=== PATIENT | male | born 1990 | race Caucasian/White ===

== ENCOUNTER → 2019-09-06 00:47 | Outpatient (CLI) | payer BC, SELFPAY ==
[2019-09-05 21:34] VITALS: BMI 34.1
== END ==
PROVIDERS: Referring Provider Nurse Practitioner; Visit Provider Nurse Practitioner
DX: L08.9 Local infection of the skin and subcutaneous tissue, unspecified (principal); S61.209A Unspecified open wound of unspecified finger without damage to nail, initial encounter
CPT/HCPCS: 87070; 87205